=== PATIENT | male | born 1955 | race Two or more races ===

== ENCOUNTER 2024-03-03 18:57 | Inpatient (IN) | payer MEDICARE, OTHER ==
[~2024-03-03] VITALS: Ht 182.9 cm; Wt 74.8 kg
[2024-03-03 21:17] LABS: BASOPHILS # (AUTO) 0.1 K/uL (0.0-0.2); BASOPHILS % (AUTO) 0.4 % (0.0-2.0); EOSINOPHILS % (AUTO) 0.3 % (0.0-6.0); HEMATOCRIT 34 % (39-51); HEMOGLOBIN 10.9 g/dL (13.5-17.5); LYMPHOCYTES # (AUTO) 0.8 K/uL (0.8-4.8); MEAN CORPUSCULAR HEMOGLOBIN 27 PG (26.0-33.0); MEAN CORPUSCULAR HGB CONC 32 g/dl (31.0-36.0); MEAN CORPUSCULAR VOLUME 85 fL (80-96); MONOCYTES # (AUTO) 1.5 K/uL (0.1-1.30); MONOCYTES % (AUTO) 9.1 % (2.0-12.0); NEUTROPHILS # (AUTO) 14.2 K/uL (1.8-8.9); NEUTROPHILS % (AUTO) 85.2 % (43.0-81.0); PLATELET COUNT (AUTO) 407 K/uL (150-450); RED BLOOD CELL COUNT(AUTO) 4.04 MIL/uL (4.5-6.0); RED CELL DISTRIBUTION WIDTH 18.4 % (11.5-15.0); WHITE BLOOD COUNT (AUTO) 16.6 K/uL (4.3-11.0)
[2024-03-03 21:29] LABS: CALCIUM, SERUM 9.6 mg/dL (8.5-10.1); CREATININE 0.5 mg/dL (0.6-1.3); POTASSIUM 3.6 mmol/L (3.5-5.1)
[2024-03-03 21:33] LABS: APPEARANCE,URINE CLEAR (CLEAR); BILIRUBIN,URINE NEGATIVE (NEGATIVE); BLOOD, URINE NEGATIVE Ery/uL (NEGATIVE); COLOR,URINE YELLOW (YELLOW); KETONES,URINE NEGATIVE (NEGATIVE); LEUKOCYTE ESTERASE ,URINE NEGATIVE (NEGATIVE); NITRITE, URINE NEGATIVE (NEGATIVE); PROTEIN,URINE NEGATIVE (NEGATIVE); UGLUCOSE NEGATIVE (NEGATIVE); UROBILINOGEN,URINE 0.2 EU/dL (0.2)
[2024-03-03 21:35] LABS: ALBUMIN 2.9 g/dL (3.4-5.0); BILIRUBIN,DIRECT 0.2 mg/dL (0.0-0.2); BILIRUBIN,TOTAL 0.6 mg/dL (0.2-1.0)
[2024-03-03] MEDS: IV NS 0.9% 1,000 ML BAG IV ONE ×2 (21:37→23:31)
[2024-03-03 21:47] LABS: LACTIC ACID 1.1 mmol/L (0.4-2.0)
[2024-03-03] MEDS ORDERED: ZOLPIDEM TARTRATE 5 MG TABLET PO PRN (23:30)
[2024-03-03] MEDS ORDERED: Z GUARD REMEDY 4 OZ OINT TP PRN (23:30)
[2024-03-03] MEDS ORDERED: ALBUTEROL FS 2.5 MG/3 ML VIAL.NEB NEB PRN (23:30)
[2024-03-03] MEDS ORDERED: ONDANSETRON HCL/PF 4 MG/2 ML VIAL IVP PRN (23:30)
[2024-03-03] MEDS ORDERED: MAG HYDROX/AL HYDROX/SIMETH 30 ML UDC PO PRN (23:30)
[2024-03-03] MEDS ORDERED: MAGNESIUM HYDROXIDE 30 ML UDC PO PRN (23:30)
[2024-03-04 00:50] VITALS: BP 141/93; TEMP 98.2; O2SAT 96
[2024-03-04] MEDS: ACETAMINOPHEN 325 MG TABLET PO PRN (01:36)
[2024-03-04] MEDS: ENOXAPARIN SODIUM 40 MG/0.4 ML DISP.SYRIN SQ ONE (01:40)
[2024-03-04] MEDS: CEFEPIME 2 GM in IV NS 0.9% 100 ML IV ONE (02:00)
[2024-03-04] MEDS: IV NS 0.9% 1,000 ML IV PRN (02:02)
[2024-03-04] MEDS ORDERED: VANCOMYCIN 1 GM /D5W 250 ML PB IV ONE ×2 (02:09→02:10)
[2024-03-04] MEDS: VANCOMYCIN 1.5 GM in IV D5W 250 ML IV ONE (02:18)
[2024-03-04] MEDS ORDERED: CEFEPIME 1 GM VIAL ONE (03:12)
[2024-03-04 06:52] LABS: BASOPHILS % (AUTO) 0.2 % (0.0-2.0); EOSINOPHILS % (AUTO) 0.2 % (0.0-6.0); HEMATOCRIT 32 % (39-51); HEMOGLOBIN 10.2 g/dL (13.5-17.5); LYMPHOCYTES # (AUTO) 0.8 K/uL (0.8-4.8); LYMPHOCYTES % (AUTO) 5.4 % (20.0-44.0); MEAN CORPUSCULAR HEMOGLOBIN 27 PG (26.0-33.0); MEAN CORPUSCULAR HGB CONC 32 g/dl (31.0-36.0); MEAN CORPUSCULAR VOLUME 86 fL (80-96); MONOCYTES # (AUTO) 1.4 K/uL (0.1-1.30); MONOCYTES % (AUTO) 9.4 % (2.0-12.0); NEUTROPHILS # (AUTO) 12.6 K/uL (1.8-8.9); NEUTROPHILS % (AUTO) 84.8 % (43.0-81.0); PLATELET COUNT (AUTO) 377 K/uL (150-450); RED BLOOD CELL COUNT(AUTO) 3.75 MIL/uL (4.5-6.0); RED CELL DISTRIBUTION WIDTH 18.3 % (11.5-15.0); WHITE BLOOD COUNT (AUTO) 14.9 K/uL (4.3-11.0)
[2024-03-04 07:14] LABS: ALBUMIN 2.4 g/dL (3.4-5.0); ALKALINE PHOSPHATASE 106 U/L (46-116); ASPARTATE AMINOTRANSFERASE 8 U/L (15-37); BILIRUBIN,DIRECT 0.1 mg/dL (0.0-0.2); BILIRUBIN,TOTAL 0.4 mg/dL (0.2-1.0); CALCIUM, SERUM 9.2 mg/dL (8.5-10.1); CARBON DIOXIDE 28 mmol/L (21-32); CHLORIDE 97 mmol/L (98-107); CREATININE 0.4 mg/dL (0.6-1.3); GLUCOSE 114 mg/dL (74-106); MAGNESIUM 1.9 mg/dL (1.8-2.4); NT-PRO BNP 209 pg/mL (0-125); PHOSPHORUS 3.4 mg/dL (2.5-4.9); POTASSIUM 3.4 mmol/L (3.5-5.1); SODIUM SERUM 129 mmol/L (136-145); UREA NITROGEN, BLOOD 5 mg/dL (7-18)
[2024-03-04 07:47] LABS: ALANINE AMINOTRANSFERASE 16 U/L (12-78)
[2024-03-04] MEDS: PANTOPRAZOLE 40 MG TABLET.DR PO SCH (07:52)
[2024-03-04 08:00] VITALS: BP 146/97; TEMP 98; O2SAT 97
[2024-03-04] MEDS ORDERED: CARV3.122 PO (08:35)
[2024-03-04] MEDS ORDERED: LISI10TA29 PO (08:35)
[2024-03-04] MEDS ORDERED: OLAN20TA3 PO (08:35)
[2024-03-04] MEDS ORDERED: SERT100T12 PO (08:35)
[2024-03-04] MEDS ORDERED: SIMV-46 PO (08:35)
[2024-03-04] MEDS: NICOTINE PATCH (21MG) 21 MG PATCH.TD24 TD SCH (08:47)
[2024-03-04] MEDS: POTASSIUM CHLORIDE 20 MEQ TAB.PRT.SR PO SCH (09:19)
[2024-03-04 11:20] LABS: MAGNESIUM 1.9 mg/dL (1.8-2.4); PHOSPHORUS 3.6 mg/dL (2.5-4.9)
[2024-03-04 12:00] VITALS: BP 155/99; TEMP 98.2; O2SAT 98
[2024-03-04 12:00] LABS: THYROID STIMULATING HORMONE 0.89 uIU/mL (0.358-3.74)
[2024-03-04] MEDS: FLECAINIDE ACETATE (100 MG) 100 MG TABLET PO SCH (12:27)
[2024-03-04] MEDS: CEFEPIME 2 GM in IV D5W 100 ML IV SCH (12:27)
[2024-03-04 16:36] VITALS: BP 151/99; TEMP 97.9; O2SAT 96
[2024-03-04] MEDS: CARVEDILOL 3.125 MG TABLET PO SCH (17:19)
[2024-03-04] MEDS: OLANZAPINE 10 MG TABLET PO SCH (17:20)
[2024-03-04] MEDS: VANCOMYCIN HCL 1.25 GM in IV D5W 250 ML IV SCH (19:47)
[2024-03-04 20:00] VITALS: BP 142/93; TEMP 98.4; O2SAT 96
[2024-03-04] MEDS: SIMVASTATIN 20 MG TABLET PO SCH (21:51)
[2024-03-05] VITALS (9 sets, daily range): BP systolic 120–150; BP diastolic 80–95; TEMP 97.5–99.1; O2SAT 94–99
[2024-03-05 06:15] LABS: BASOPHILS % (AUTO) 0.3 % (0.0-2.0); EOSINOPHILS % (AUTO) 0.3 % (0.0-6.0); HEMATOCRIT 33 % (39-51); HEMOGLOBIN 10.4 g/dL (13.5-17.5); LYMPHOCYTES # (AUTO) 0.5 K/uL (0.8-4.8); LYMPHOCYTES % (AUTO) 3.6 % (20.0-44.0); MEAN CORPUSCULAR HEMOGLOBIN 28 PG (26.0-33.0); MEAN CORPUSCULAR HGB CONC 32 g/dl (31.0-36.0); MEAN CORPUSCULAR VOLUME 86 fL (80-96); MONOCYTES # (AUTO) 1.1 K/uL (0.1-1.30); MONOCYTES % (AUTO) 7.8 % (2.0-12.0); NEUTROPHILS # (AUTO) 12.5 K/uL (1.8-8.9); PLATELET COUNT (AUTO) 393 K/uL (150-450); RED BLOOD CELL COUNT(AUTO) 3.77 MIL/uL (4.5-6.0); RED CELL DISTRIBUTION WIDTH 18.2 % (11.5-15.0); WHITE BLOOD COUNT (AUTO) 14.2 K/uL (4.3-11.0)
[2024-03-05 06:50] LABS: CALCIUM, SERUM 9.7 mg/dL (8.5-10.1); CREATININE 0.6 mg/dL (0.6-1.3); POTASSIUM 3.9 mmol/L (3.5-5.1)
[2024-03-05 07:35] LABS: MAGNESIUM 1.5 mg/dL (1.8-2.4); PHOSPHORUS 2.9 mg/dL (2.5-4.9)
[2024-03-05 07:37] LABS: THYROID STIMULATING HORMONE 0.7 uIU/mL (0.358-3.74); URIC ACID 2.4 mg/dL (2.6-7.2)
[2024-03-05] MEDS: SERTRALINE HCL 50 MG TABLET PO SCH (09:00)
[2024-03-05] MEDS: LISINOPRIL (10MG) 10 MG TABLET PO SCH (09:00)
[2024-03-05] MEDS: IPRATROPIUM NEB FS 0.5 MG/2.5 ML AMPUL.NEB NEB SCH (09:00)
[2024-03-05] MEDS ORDERED: methylPREDNISolone SOD SUCC 125 MG/2ML VIAL IV SCH (09:00)
[2024-03-05] MEDS: Magnesium 1GM/D5W 100ML PREMIX 100 ML IV SCH (09:20)
[2024-03-05] MEDS: methylPREDNISolone SOD SUCC 40 MG/ML VIAL IV SCH (10:07)
[2024-03-05 12:53] LABS: URINE SODIUM, RANDOM 85 mmol/l (40-220)
[2024-03-05] MEDS ORDERED: LIDOCAINE 5% OINT 35.44 GM TUBE ONE (14:04)
[2024-03-05] MEDS ORDERED: ANESTHESIA TRAY IN PYXIS 1 EA TRAY MC ONE (14:04)
[2024-03-05] MEDS ORDERED: ALBUTEROL FS 2.5 MG/3 ML VIAL.NEB ONE (14:22)
[2024-03-05] MEDS ORDERED: HYDROCODONE BIT/HOMATROPINE 5 ML UDC PO PRN (16:00)
[2024-03-05] MEDS: VANCOMYCIN HCL 1.25 GM in IV D5W 250 ML IV SCH (21:05)
[2024-03-06] VITALS (13 sets, daily range): BP systolic 120–160; BP diastolic 70–99; TEMP 97.7–98.1; O2SAT 94–100
[2024-03-06 06:49] LABS: BASOPHILS % (AUTO) 0.2 % (0.0-2.0); HEMATOCRIT 34 % (39-51); HEMOGLOBIN 10.7 g/dL (13.5-17.5); LYMPHOCYTES # (AUTO) 0.4 K/uL (0.8-4.8); LYMPHOCYTES % (AUTO) 2.4 % (20.0-44.0); MEAN CORPUSCULAR HEMOGLOBIN 28 PG (26.0-33.0); MEAN CORPUSCULAR HGB CONC 32 g/dl (31.0-36.0); MEAN CORPUSCULAR VOLUME 87 fL (80-96); MONOCYTES # (AUTO) 0.3 K/uL (0.1-1.30); MONOCYTES % (AUTO) 2.2 % (2.0-12.0); NEUTROPHILS # (AUTO) 15.2 K/uL (1.8-8.9); NEUTROPHILS % (AUTO) 95.2 % (43.0-81.0); PLATELET COUNT (AUTO) 383 K/uL (150-450); RED BLOOD CELL COUNT(AUTO) 3.86 MIL/uL (4.5-6.0); RED CELL DISTRIBUTION WIDTH 17.8 % (11.5-15.0)
[2024-03-06 07:01] LABS: CALCIUM, SERUM 9.9 mg/dL (8.5-10.1); CREATININE 0.6 mg/dL (0.6-1.3); MAGNESIUM 1.9 mg/dL (1.8-2.4); PHOSPHORUS 3.7 mg/dL (2.5-4.9); POTASSIUM 3.8 mmol/L (3.5-5.1)
[2024-03-06] MEDS ORDERED: FLEC100T3 PO (16:31)
[2024-03-06] MEDS ORDERED: FLUT1BLS6 IH (16:31)
[2024-03-06] MEDS ORDERED: NICO-762 TD (16:31)
[2024-03-11] MEDS ORDERED: PRED20TA PO (09:27)
== END 2024-03-06 18:26 | disposition home health service (06) | DRG 308 ==
LOC: ER 18:59 → MED 03-04 00:14 → TELE 03-04 01:05
PROVIDERS: ADMIT Nurse Practitioner Family; ATTEND Student in an Organized Health Care Education/Training Program
PROC: 0BDC8ZX Extraction of Right Upper Lung Lobe, Via Natural or Artificial Opening Endoscopic, Diagnostic (ICD-10-PCS; principal; 2024-03-05)
DX: I48.0 Paroxysmal atrial fibrillation (principal); J15.9 Unspecified bacterial pneumonia; C34.11 Malignant neoplasm of upper lobe, right bronchus or lung; E22.2 Syndrome of inappropriate secretion of antidiuretic hormone; E44.0 Moderate protein-calorie malnutrition; E83.42 Hypomagnesemia; E86.1 Hypovolemia; R91.8 Other nonspecific abnormal finding of lung field; D63.8 Anemia in other chronic diseases classified elsewhere; E88.09 Other disorders of plasma-protein metabolism, not elsewhere classified; F31.9 Bipolar disorder, unspecified; F17.210 Nicotine dependence, cigarettes, uncomplicated; Z71.6 Tobacco abuse counseling; R55 Syncope and collapse; D72.829 Elevated white blood cell count, unspecified; Z20.822 Contact with and (suspected) exposure to COVID-19; J44.9 Chronic obstructive pulmonary disease, unspecified; F25.0 Schizoaffective disorder, bipolar type
CPT/HCPCS: 36415; 70450-TC; 71045-TC; 71250-TC; 80048-TC; 80061-TC; 80076-TC; 80202-TC; 82728-TC; 83540-TC; 83605-TC; 83735-TC; 83880; 83935-TC; 84100-TC; 84300-TC; 84439-TC; 84443-TC; 84484-TC; 84550-TC; 85025-TC; 93307-TC; 93880-TC; 94799-TC; 97110-TC; 97116-TC; 97530-TC; A4223; G0378; J0330; J0692; J1100; J1650; J2405; J2704; J2919; J3370; J3371; J3475; J3490; J7030; J7060

== ENCOUNTER 2024-03-07 17:06 | Inpatient (IN) | payer MEDICARE, OTHER ==
[~2024-03-07] VITALS: Ht 185.4 cm; Wt 84.8 kg
[~2024-03-07 17:06] MED LIST: CARV3.122 PO; CEFEPIME 2 GM in IV D5W 100 ML IV SCH; FLEC100T3 PO; FLUT1BLS6 IH; LISI10TA29 PO; NICO-762 TD; OLAN20TA3 PO; SERT100T12 PO; SIMV-46 PO
[2024-03-07] MEDS ORDERED: methylPREDNISolone SOD SUCC 125 MG/2ML VIAL ONE (17:20)
[2024-03-07] MEDS ORDERED: ALBUTEROL FS 2.5 MG/3 ML VIAL.NEB ONE (17:26)
[2024-03-07] MEDS ORDERED: IPRATROPIUM NEB FS 0.5 MG/2.5 ML AMPUL.NEB ONE (17:26)
[2024-03-07] MEDS: methylPREDNISolone SOD SUCC 125 MG/2ML VIAL IV ONE (17:30)
[2024-03-07 17:33] VITALS: O2SAT 91
[2024-03-07] MEDS: ALBUTEROL FS 2.5 MG/3 ML VIAL.NEB NEB ONE (17:33)
[2024-03-07] MEDS: IPRATROPIUM NEB FS 0.5 MG/2.5 ML AMPUL.NEB NEB ONE (17:33)
[2024-03-07 17:41] LABS: BASOPHILS % (AUTO) 0.1 % (0.0-2.0); EOSINOPHILS % (AUTO) 0.1 % (0.0-6.0); HEMATOCRIT 34 % (39-51); LYMPHOCYTES # (AUTO) 0.6 K/uL (0.8-4.8); LYMPHOCYTES % (AUTO) 3.3 % (20.0-44.0); MEAN CORPUSCULAR HEMOGLOBIN 28 PG (26.0-33.0); MEAN CORPUSCULAR HGB CONC 32 g/dl (31.0-36.0); MEAN CORPUSCULAR VOLUME 87 fL (80-96); MONOCYTES # (AUTO) 1.6 K/uL (0.1-1.30); MONOCYTES % (AUTO) 8.2 % (2.0-12.0); NEUTROPHILS # (AUTO) 17.1 K/uL (1.8-8.9); NEUTROPHILS % (AUTO) 88.3 % (43.0-81.0); PLATELET COUNT (AUTO) 388 K/uL (150-450); RED BLOOD CELL COUNT(AUTO) 3.93 MIL/uL (4.5-6.0); RED CELL DISTRIBUTION WIDTH 18.3 % (11.5-15.0); WHITE BLOOD COUNT (AUTO) 19.3 K/uL (4.3-11.0)
[2024-03-07 17:57] LABS: CREATININE 0.6 mg/dL (0.6-1.3); POTASSIUM 3.5 mmol/L (3.5-5.1)
[2024-03-07] MEDS ORDERED: ONDANSETRON HCL/PF 4 MG/2 ML VIAL IVP PRN (18:30)
[2024-03-07] MEDS ORDERED: MORPHINE SULFATE INJ 2 MG/ML DISP.SYRIN IV PRN (18:30)
[2024-03-07] MEDS ORDERED: hydrALAZINE HCL IV 20 MG VIAL IV PRN (18:30)
[2024-03-07] MEDS ORDERED: ALBUTEROL FS 2.5 MG/0.5 ML VIAL.NEB NEB PRN (18:30)
[2024-03-07] MEDS ORDERED: ACETAMINOPHEN 325 MG TABLET PO PRN (18:30)
[2024-03-07] MEDS: IV NS 0.9% 1,000 ML BAG IV ONE (18:30)
[2024-03-07 18:33] VITALS: O2SAT 97
[2024-03-07] MEDS: CEFEPIME 1 GM in IV D5W 50 ML IV ONE (19:35)
[2024-03-07] MEDS: VANCOMYCIN 1 GM in IV D5W 250 ML IV ONE (20:20)
[2024-03-07] MEDS: HEPARIN SODIUM, PORCINE 5000 UNITS/1 ML VIAL SQ SCH (21:00)
[2024-03-07 21:15] VITALS: BP 158/98; TEMP 97.7; O2SAT 97
[2024-03-07] MEDS: FLECAINIDE ACETATE (100 MG) 100 MG TABLET PO SCH (21:55)
[2024-03-07] MEDS: SIMVASTATIN 20 MG TABLET PO SCH (21:55)
[2024-03-07] MEDS: methylPREDNISolone SOD SUCC 40 MG/ML VIAL IV SCH (23:43)
[2024-03-08] VITALS (11 sets, daily range): BP systolic 152–155; BP diastolic 95–99; TEMP 97.2–98.6; O2SAT 89–98
[2024-03-08] MEDS ORDERED: IPRATROPIUM/ALBUTEROL INHALER IH SCH
[2024-03-08] MEDS: VANCOMYCIN HCL 1.25 GM in IV D5W 250 ML IV SCH (01:15)
[2024-03-08] MEDS: CEFEPIME 2 GM in IV D5W 100 ML IV SCH (03:50)
[2024-03-08 06:34] LABS: HEMATOCRIT 32 % (39-51); HEMOGLOBIN 10.4 g/dL (13.5-17.5); LYMPHOCYTES # (AUTO) 0.2 K/uL (0.8-4.8); LYMPHOCYTES % (AUTO) 1.7 % (20.0-44.0); MEAN CORPUSCULAR HEMOGLOBIN 28 PG (26.0-33.0); MEAN CORPUSCULAR HGB CONC 32 g/dl (31.0-36.0); MEAN CORPUSCULAR VOLUME 86 fL (80-96); MONOCYTES # (AUTO) 0.3 K/uL (0.1-1.30); MONOCYTES % (AUTO) 2.2 % (2.0-12.0); NEUTROPHILS # (AUTO) 14.2 K/uL (1.8-8.9); NEUTROPHILS % (AUTO) 96.1 % (43.0-81.0); PLATELET COUNT (AUTO) 357 K/uL (150-450); RED BLOOD CELL COUNT(AUTO) 3.78 MIL/uL (4.5-6.0); RED CELL DISTRIBUTION WIDTH 18.9 % (11.5-15.0); WHITE BLOOD COUNT (AUTO) 14.8 K/uL (4.3-11.0)
[2024-03-08 07:04] LABS: ALBUMIN 2.6 g/dL (3.4-5.0); BILIRUBIN,TOTAL 0.4 mg/dL (0.2-1.0); CALCIUM, SERUM 9.7 mg/dL (8.5-10.1); CREATININE 0.6 mg/dL (0.6-1.3); MAGNESIUM 1.9 mg/dL (1.8-2.4); PHOSPHORUS 3.7 mg/dL (2.5-4.9); POTASSIUM 3.5 mmol/L (3.5-5.1); TOTAL PROTEIN, SERUM 6.3 g/dL (6.4-8.2)
[2024-03-08] MEDS: ALBUTEROL FS 2.5 MG/3 ML VIAL.NEB NEB SCH (07:35)
[2024-03-08] MEDS: IPRATROPIUM NEB FS 0.5 MG/2.5 ML AMPUL.NEB NEB SCH (07:35)
[2024-03-08] MEDS: NICOTINE PATCH (21MG) 21 MG PATCH.TD24 TD SCH (08:11)
[2024-03-08] MEDS: CARVEDILOL 3.125 MG TABLET PO SCH (08:12)
[2024-03-08] MEDS: LISINOPRIL (10MG) 10 MG TABLET PO SCH (08:13)
[2024-03-08] MEDS: SERTRALINE HCL 50 MG TABLET PO SCH (08:14)
[2024-03-08] MEDS ORDERED: Medication Not On Formulary EA (Fluticasone/Umeclidin/Vilanter (Trelegy Ellipta 100-62.5 IH SCH (09:00)
[2024-03-08] MEDS: OLANZAPINE 10 MG TABLET PO SCH (17:07)
[2024-03-08 17:51] LABS: CREATININE, URINE 40.9 MG/DL (30.0-125.0); URINE TOTAL PROTEIN 18.9 mg/dL (0-11.9)
[2024-03-08 18:18] LABS: APPEARANCE,URINE CLEAR (CLEAR); BILIRUBIN,URINE NEGATIVE (NEGATIVE); BLOOD, URINE NEGATIVE Ery/uL (NEGATIVE); COLOR,URINE YELLOW (YELLOW); KETONES,URINE NEGATIVE (NEGATIVE); LEUKOCYTE ESTERASE ,URINE NEGATIVE (NEGATIVE); NITRITE, URINE NEGATIVE (NEGATIVE); PROTEIN,URINE NEGATIVE (NEGATIVE); UGLUCOSE NEGATIVE (NEGATIVE); UROBILINOGEN,URINE 0.2 EU/dL (0.2)
[2024-03-08 19:20] LABS: EOSINOPHIL,URINE Rare
[2024-03-09] VITALS (9 sets, daily range): BP systolic 135–149; BP diastolic 76–94; TEMP 97.9–98.8; O2SAT 89–97
[2024-03-09 06:47] LABS: CALCIUM, SERUM 9.8 mg/dL (8.5-10.1); CREATININE 0.5 mg/dL (0.6-1.3); MAGNESIUM 1.9 mg/dL (1.8-2.4); PHOSPHORUS 2.5 mg/dL (2.5-4.9); POTASSIUM 3.6 mmol/L (3.5-5.1)
[2024-03-09 07:13] LABS: URIC ACID 3.3 mg/dL (2.6-7.2)
[2024-03-09 07:53] LABS: THYROID STIMULATING HORMONE 0.41 uIU/mL (0.358-3.74)
[2024-03-09 09:07] LABS: BASOPHILS % (AUTO) 0.1 % (0.0-2.0); HEMATOCRIT 31 % (39-51); HEMOGLOBIN 9.7 g/dL (13.5-17.5); LYMPHOCYTES # (AUTO) 0.3 K/uL (0.8-4.8); LYMPHOCYTES % (AUTO) 1.4 % (20.0-44.0); MEAN CORPUSCULAR HEMOGLOBIN 27 PG (26.0-33.0); MEAN CORPUSCULAR HGB CONC 32 g/dl (31.0-36.0); MEAN CORPUSCULAR VOLUME 86 fL (80-96); MONOCYTES # (AUTO) 0.8 K/uL (0.1-1.30); MONOCYTES % (AUTO) 4.3 % (2.0-12.0); NEUTROPHILS # (AUTO) 17.2 K/uL (1.8-8.9); NEUTROPHILS % (AUTO) 94.2 % (43.0-81.0); PLATELET COUNT (AUTO) 342 K/uL (150-450); RED BLOOD CELL COUNT(AUTO) 3.58 MIL/uL (4.5-6.0); RED CELL DISTRIBUTION WIDTH 18.5 % (11.5-15.0); WHITE BLOOD COUNT (AUTO) 18.2 K/uL (4.3-11.0)
[2024-03-09] MEDS: methylPREDNISolone SOD SUCC 40 MG/ML VIAL IV SCH (10:09)
[2024-03-10] VITALS (11 sets, daily range): BP systolic 153–157; BP diastolic 94–97; TEMP 98.2–98.6; O2SAT 91–100
[2024-03-10 06:11] LABS: BASOPHILS % (AUTO) 0.1 % (0.0-2.0); EOSINOPHILS % (AUTO) 0.2 % (0.0-6.0); HEMATOCRIT 34 % (39-51); HEMOGLOBIN 10.8 g/dL (13.5-17.5); LYMPHOCYTES # (AUTO) 0.6 K/uL (0.8-4.8); LYMPHOCYTES % (AUTO) 3.3 % (20.0-44.0); MEAN CORPUSCULAR HEMOGLOBIN 28 PG (26.0-33.0); MEAN CORPUSCULAR HGB CONC 32 g/dl (31.0-36.0); MEAN CORPUSCULAR VOLUME 87 fL (80-96); MONOCYTES # (AUTO) 1.3 K/uL (0.1-1.30); NEUTROPHILS # (AUTO) 17.1 K/uL (1.8-8.9); NEUTROPHILS % (AUTO) 89.4 % (43.0-81.0); PLATELET COUNT (AUTO) 344 K/uL (150-450); RED BLOOD CELL COUNT(AUTO) 3.92 MIL/uL (4.5-6.0); WHITE BLOOD COUNT (AUTO) 19.1 K/uL (4.3-11.0)
[2024-03-10 06:26] LABS: CALCIUM, SERUM 9.8 mg/dL (8.5-10.1); CREATININE 0.6 mg/dL (0.6-1.3); POTASSIUM 3.5 mmol/L (3.5-5.1)
[2024-03-11 02:09] VITALS: O2SAT 97
[2024-03-11 02:24] VITALS: O2SAT 99
[2024-03-11 06:25] LABS: BASOPHILS % (AUTO) 0.1 % (0.0-2.0); CALCIUM, SERUM 9.5 mg/dL (8.5-10.1); CREATININE 0.5 mg/dL (0.6-1.3); EOSINOPHILS # (AUTO) 0.1 K/uL (0.0-0.7); EOSINOPHILS % (AUTO) 0.4 % (0.0-6.0); HEMATOCRIT 34 % (39-51); HEMOGLOBIN 10.8 g/dL (13.5-17.5); LYMPHOCYTES # (AUTO) 0.6 K/uL (0.8-4.8); LYMPHOCYTES % (AUTO) 3.2 % (20.0-44.0); MEAN CORPUSCULAR HEMOGLOBIN 28 PG (26.0-33.0); MEAN CORPUSCULAR HGB CONC 32 g/dl (31.0-36.0); MEAN CORPUSCULAR VOLUME 86 fL (80-96); MONOCYTES # (AUTO) 1.5 K/uL (0.1-1.30); MONOCYTES % (AUTO) 8.3 % (2.0-12.0); NEUTROPHILS # (AUTO) 16.3 K/uL (1.8-8.9); PLATELET COUNT (AUTO) 311 K/uL (150-450); POTASSIUM 3.6 mmol/L (3.5-5.1); RED BLOOD CELL COUNT(AUTO) 3.92 MIL/uL (4.5-6.0); WHITE BLOOD COUNT (AUTO) 18.6 K/uL (4.3-11.0)
[2024-03-11 07:41] VITALS: O2SAT 96
[2024-03-11 07:50] VITALS: O2SAT 100
[2024-03-11 08:00] VITALS: BP 157/179; TEMP 98.4; O2SAT 95
[2024-03-11] MEDS: predniSONE 20 MG TABLET PO SCH (08:55)
[2024-03-11 08:58] VITALS: BP 145/100
[2024-03-11] MEDS ORDERED: PRED20TA PO (09:27)
== END 2024-03-11 13:28 | DRG 189 ==
LOC: ER 17:08 → MED 20:56
PROVIDERS: ADMIT Internal Medicine; ATTEND Internal Medicine
DX: J96.21 Acute and chronic respiratory failure with hypoxia (principal); J44.1 Chronic obstructive pulmonary disease with (acute) exacerbation; E44.0 Moderate protein-calorie malnutrition; E87.1 Hypo-osmolality and hyponatremia; J98.11 Atelectasis; C34.11 Malignant neoplasm of upper lobe, right bronchus or lung; C34.81 Malignant neoplasm of overlapping sites of right bronchus and lung; D63.8 Anemia in other chronic diseases classified elsewhere; E83.42 Hypomagnesemia; E86.1 Hypovolemia; E88.09 Other disorders of plasma-protein metabolism, not elsewhere classified; F17.210 Nicotine dependence, cigarettes, uncomplicated; F25.9 Schizoaffective disorder, unspecified; F31.9 Bipolar disorder, unspecified; I10 Essential (primary) hypertension; I48.0 Paroxysmal atrial fibrillation; D72.829 Elevated white blood cell count, unspecified; Z68.24 Body mass index [BMI] 24.0-24.9, adult; E86.9 Volume depletion, unspecified; Z71.6 Tobacco abuse counseling
CPT/HCPCS: 36415; 71045-TC; 71250-TC; 80048-TC; 80053-TC; 80202-TC; 82570-TC; 83605-TC; 83735-TC; 83935-TC; 84100-TC; 84300-TC; 84443-TC; 84550-TC; 85025-TC; 87040-TC; 94761-TC; 94762-TC; 94799-TC; A4223; G0378; J0692; J1644; J2919; J3370; J7030; J7060